=== PATIENT | male | born 1960 | race Caucasian/White ===

== ENCOUNTER 2016-10-16 14:22 | Inpatient (IN) | payer MEDICARE, MEDICAID ==
[~2016-10-16] VITALS: Ht 177.8 cm; Wt 86.2 kg
[~2016-10-16 14:22] MED LIST: ALPRAZOLAM0.25 MG; ATIVAN0.5 MG ORAL; CIPROFLOXACIN500 M2 ORAL; CLONAZEPAM1 M2 ORAL; CYMBALTA20 MG ORAL; FLONASE1 SPRAYS NASAL; HYDROCODON-ACE1 EA16 PO; ISENTRESS400 MG ORAL; KEFLEX500 MG ORAL; LISINOPRIL20 MG ORAL; MELOXICAM7.5 MG; METRONIDAZOLE500 MG ORAL; MORPHINE IR15 MG ORAL; NEXIUM40 MG ORAL; OMEPRAZOLE20 M2 ORAL; SEROSTIM6 M1; SIMVASTATIN40 MG ORAL; SINGLE USE SWA1 EACH; SULFAMETHOXAZO1 EAC2; TAMSULOSIN HCL0.4 MG ORAL; TESTIM5 GM; TRUVADA1 TAB ORAL; ZOFRAN4 MG ORAL; ZOLPIDEM TARTRAT5 MG ORAL
[2016-10-16] MEDS ORDERED: Morphine Sulfate 4mg/ml Inj IVP ONE (14:30)
--- NOTE | 2016-10-16 14:30 | Emergency Room Report ---
History of Present Illness General Chief Complaint: vomitting Source: Patient Present Illness HPI Patient is a 56-year-old male who presented after having increased abdominal pain as well as vomiting. Patient had prior history of HIV as well as chronic pain. Patient reportedly had not been able to keep down his medications and been vomiting in the waiting room of his doctor's office. The patient was sent in by Dr. Lamont Cordero. Patient had a generalized pain. Allergies: Coded Allergies: No Known Allergies (Verified , 05/18/11) Patient History Past Medical History: see triage record Reviewed Nursing Documentation: PMH: Agreed, PSxH: Agreed Nursing Documentation-PMH Hx Cardiac Problems: No - hiv Hx Hypertension: Yes Hx Pacemaker: No Hx Asthma: No Hx COPD: No Hx Diabetes: No Hx Cancer: No Hx Gastrointestinal Problems: Yes - Hiatal Hernia, GB removal surgery Hx Dialysis: No Hx Neurological Problems: No Hx Cerebrovascular Accident: No Hx Seizures: No Review of Systems All Other Systems: negative except mentioned in HPI Physical Exam Sp02 EP Interpretation: reviewed, normal General Appearance: normal inspection, alert, GCS 15, mild distress Head: atraumatic ENT: normal ENT inspection, hearing grossly normal, normal voice Neck: normal inspection, full range of motion, supple, no bony tend Respiratory: normal inspection, lungs clear, normal breath sounds, no respiratory distress, no retraction, no wheezing Cardiovascular #1: regular rate, rhythm, no edema Gastrointestinal: normal inspection, normal bowel sounds, soft, no guarding, no hernia, tenderness - mild diffuse, no guarding no rebound Genitourinary: no CVA tenderness Musculoskeletal: normal inspection, back normal, normal range of motion Neurologic: normal inspection, alert, oriented x3, responsive, satellite project site monitor III-XII nml as tested, speech normal Psychiatric: normal inspection, judgement/insight normal, mood/affect normal Skin: normal inspection, normal color, no rash Medical Decision Making Diagnostic Impression: Primary Impression: Intractable vomiting Additional Impression: Dehydration ER Course Patient presented for abdominal pain. Differential diagnoses included ischemic bowel, appendicitis, perforated viscus, abdominal aortic aneurysm, inferior myocardial infarction, viral gastroenteritis Because of complexity of patient's case laboratory testing and imaging studies were ordered.Patient was given IV fluids as well as IV antiemetics and pain medications.Dr. Lamont Cordero was contacted for inpatient observation due to multiple episodes of vomiting as well as recent increase pain. Labs Test 10/16/16 15:05 White Blood Count 5.6 K/UL (4.8-10.8) Red Blood Count 5.17 M/UL (4.70-6.10) Hemoglobin 17.1 G/DL (14.2-18.0) Hematocrit 51.0 % (42.0-52.0) Mean Corpuscular Volume 99 FL (80-99) Mean Corpuscular Hemoglobin 33.0 PG (27.0-31.0) Mean Corpuscular Hemoglobin Concent 33.5 G/DL (32.0-36.0) Red Cell Distribution Width 11.4 % (11.6-14.8) Platelet Count 200 K/UL (150-450) Mean Platelet Volume 7.4 FL (6.5-10.1) Neutrophils (%) (Auto) 70.0 % (45.0-75.0) Lymphocytes (%) (Auto) 18.4 % (20.0-45.0) Monocytes (%) (Auto) 9.5 % (1.0-10.0) Eosinophils (%) (Auto) 0.4 % (0.0-3.0) Basophils (%) (Auto) 1.6 % (0.0-2.0) Sodium Level 136 mEQ/L (135-145) Potassium Level 4.3 mEQ/L (3.4-4.9) Chloride Level 93 mEQ/L (98-107) Carbon Dioxide Level 31 mEQ/L (20-30) Anion Gap 12 (5-15) Blood Urea Nitrogen 15 mg/dL (7-23) Creatinine 1.0 mg/dL (0.7-1.2) Estimat Glomerular Filtration Rate > 60 mL/min (>60) Glucose Level 139 mg/dL (74-106) Calcium Level 9.3 mg/dL (8.6-10.2) Total Bilirubin 0.5 mg/dL (0.0-1.2) Aspartate Amino Transf (AST/SGOT) 27 U/L (5-40) Alanine Aminotransferase (ALT/SGPT) 20 U/L (3-41) Alkaline Phosphatase 48 U/L (40-129) Total Protein 6.7 g/dL (6.6-8.7) Albumin 4.3 g/dL (3.5-5.2) Globulin 2.4 g/dL Albumin/Globulin Ratio 1.7 (1.0-2.7) Lipase 22 U/L (< 60) Status: unchanged Disposition: PLACE IN OBSERVATION Condition: Serious Good Shell Oct 16, 2016 14:30
[2016-10-16] MEDS ORDERED: SOMA350 MG PO (14:47)
[2016-10-16] MEDS ORDERED: Tubing IV Cassette IV ONE (15:11)
[2016-10-16 15:28] LABS: BASOPHILS % (AUTO) 1.6 % (0.0-2.0); EOSINOPHILS % (AUTO) 0.4 % (0.0-3.0); LYMPHOCYTES % (AUTO) 18.4 % (20.0-45.0); MEAN CORPUSCULAR HGB CONC 33.5 G/DL (32.0-36.0); MEAN CORPUSCULAR VOLUME 99 FL (80-99); MEAN PLATELET VOLUME 7.4 FL (6.5-10.1); MONOCYTES % (AUTO) 9.5 % (1.0-10.0); PLATELET COUNT 200 K/UL (150-450); RED BLOOD COUNT 5.17 M/UL (4.70-6.10); RED CELL DISTRIBUTION WIDTH 11.4 % (11.6-14.8); WHITE BLOOD COUNT 5.6 K/UL (4.8-10.8)
[2016-10-16 15:37] LABS: ALANINE AMINOTRANSFERASE 20 U/L (3-41); ALBUMIN/GLOBULIN RATIO 1.7 (1.0-2.7); ANION GAP 12 (5-15); ASPARTATE AMINO TRANSFERASE 27 U/L (5-40); CALCIUM 9.3 mg/dL (8.6-10.2); CARBON DIOXIDE 31 mEQ/L (20-30); CHLORIDE 93 mEQ/L (98-107); GLOMERULAR FILTRATION RATE > 60 mL/min (>60); HEMOLYSIS 11; LIPASE 22 U/L (< 60); POTASSIUM 4.3 mEQ/L (3.4-4.9); SODIUM 136 mEQ/L (135-145); TOTAL PROTEIN 6.7 g/dL (6.6-8.7)
[2016-10-16 16:09] LABS: APPEARANCE,URINE CLEAR; KETONES,URINE 1+ (NEGATIVE); LEUKOCYTE ESTERASE ,URINE 1+ (NEGATIVE); NITRITE,URINE NEGATIVE (NEGATIVE); PH,URINE 6.5 (4.5-8.0); PROTEIN,URINE 1+ (NEGATIVE); UROBILINOGEN,URINE 4 MG/DL (0.0-1.0)
[2016-10-16 16:19] LABS: BACTERIA,URINE MODERATE /HPF; RBC,URINE 0-2 /HPF (0 - 0)
[2016-10-16 16:20] LABS: AMORPHOUS SEDIMENT,UR FEW /LPF; MUCUS,URINE FEW /LPF (NONE/OCC); YEAST,URINE FEW /HPF
[2016-10-16 16:30] VITALS: BP 163/95
[2016-10-16] MEDS ORDERED: Zolpidem 5mg tab ORAL PRN (16:45)
[2016-10-16] MEDS ORDERED: clonazePAM 0.5mg tab ORAL PRN (16:45)
[2016-10-16 20:00] VITALS: BP 156/93
[2016-10-16] MEDS: ALPRAZolam 0.25mg tab ORAL SCH (20:10)
[2016-10-16] MEDS ORDERED: Isentress 400mg tab ORAL SCH (21:00)
[2016-10-16] MEDS: HYDROmorphone 2 MG in NS 55 ML IVPB PRN (21:07)
[2016-10-16 23:31] VITALS: BP 146/81
[2016-10-17 03:45] VITALS: BP 151/88
[2016-10-17 08:07] VITALS: BP 127/83
[2016-10-17] MEDS: HYDROmorphone 2 MG in NS 55 ML IVPB PRN ×2 (08:35→12:59)
[2016-10-17] MEDS: ALPRAZolam 0.25mg tab ORAL SCH ×2 (08:36→12:59)
[2016-10-17] MEDS ORDERED: DULoxetine 30mg cap ORAL SCH (09:00)
[2016-10-17] MEDS ORDERED: Lisinopril 20mg tab ORAL SCH (09:00)
[2016-10-17] MEDS ORDERED: Emitricitabine/Tenofovir 200/300mg tab ORAL SCH (09:00)
[2016-10-17 12:14] VITALS: BP 106/72
--- NOTE | 2016-10-17 13:23 | Discharge Instructions ---
Discharge Instructions Discharge Instructions Diet: regular Resume Normal Activity?: Yes Pneumonia Vaccine: vaccine not indicated For Congestive Heart Failure Reminder Report to your physician any weight gain of 5 pounds or more in one week. MANAV BALDERAS Oct 17, 2016 13:23
[2016-10-17] MEDS ORDERED: Tubing IV Secondary IV ONE (14:06)
[2016-10-17] MEDS ORDERED: 1/2 NS 1000ml IV ONE (14:06)
--- NOTE | 2016-10-24 17:48 | Discharge Summary ---
Discharge Summary Hospital Course Date of Admission Oct 16, 2016 at 15:18 Date of Discharge Oct 17, 2016 at 14:07 Admitting Diagnosis GASTRO ENTRITIES ,DEHYDRATION HPI Biff Erum Olivares is a 56 year old male who was admitted on Oct 16, 2016 at 15: 18 for Gastroenretis,Dehydration Hospital Course [id number] Discharge Discharge Disposition Patient was discharged to Home (01) Discharge Diagnoses: Discharge Instructions Discharge Instructions Pneumonia Vaccine: vaccine not indicated Sue Lou NP Oct 24, 2016 17:48
--- NOTE | 2016-10-25 00:28 | Discharge Summary 2 SIG ---
DATE OF ADMISSION: 10/16/2016 DATE OF DISCHARGE: 10/17/2016 BRIEF HOSPITAL COURSE: The patient is a 56-year-old male, who presented to ED after increased abdominal pain, as well as vomiting. He has a history of HIV as well as chronic pain and reportedly he had not been able to keep down his medications and has been vomiting in the waiting's room at the doctor's office. He was sent to the ED and was admitted to the medical floor. He was given IV hydration. Following day, he was discharged home. FINAL DIAGNOSES: 1. Nausea and vomiting. 2. Abdominal pain. Lamont Cordero M.D. I have been assigned to dictate discharge summary on this account and I was not involved in the patient's management. Sue Lou N.P. DR: SALEEM JOB#: [id number] CC:
--- NOTE | 2016-10-28 20:58 | History and Physical Report ---
DATE OF ADMISSION: 10/16/2016 INPATIENT HISTORY AND PHYSICAL HISTORY OF PRESENT ILLNESS: The patient was admitted to the emergency room with a diagnosis of nausea and vomiting. The patient is HIV positive, has past history of diverticulitis, gastritis, abdominal pain, and constipation due to opioid use. Past history of intractable vomiting. He had a 48-hour history of nausea, vomiting, and diarrhea. His partner at home also had a similar history. He was seen in the Emergency Room at [facility] yesterday and discharged, however, returned to the office today complaining of ongoing symptoms and was admitted. PAST MEDICAL HISTORY: Remarkable for HIV disease and multiple admissions for nausea and vomiting due to opioid use. MEDICATIONS: Include Drake, Xanax, Soma, Klonopin, Cymbalta, Truvada, Nexium, fluticasone, lisinopril, morphine sulfate extended release, omeprazole, raltegravir 400 mg b.i.d., Zocor, Serostim, tamsulosin, Testim, Bactrim, and Ambien. PAST SURGICAL HISTORY: None. ALLERGIES: None. PHYSICAL EXAMINATION: GENERAL: A chronically ill-appearing man noted in his stated age. VITAL SIGNS: Within normal limits. HEENT: Head, ears eyes, nose, and throat are normal. NECK: Decreased range of motion. CHEST: Clear. HEART: S1, S2 normal without murmur or gallop. ABDOMEN: Soft without palpable organomegaly. EXTREMITIES: Negative for calf tenderness, clubbing, or edema. ASSESSMENT: Gastroenteritis. PLAN: He will receive IV hydration and will be on observation. Medications will be continued as tolerated. Lamont Cordero M.D. DR: Meka JOB#: [id number] CC:
== END 2016-10-17 14:07 | disposition home or self-care (01) | DRG 641 ==
LOC: EMR 14:57 → EDBEDREQ 15:13 → OBSVTOIN 15:18 → INTOOBSV 15:18 → 4W 15:18 → EDBEDREQ 15:52
DX: E86.0 Dehydration (principal); K52.9 Noninfective gastroenteritis and colitis, unspecified; K57.90 Diverticulosis of intestine, part unspecified, without perforation or abscess without bleeding; G89.29 Other chronic pain; K44.9 Diaphragmatic hernia without obstruction or gangrene; Z90.49 Acquired absence of other specified parts of digestive tract; Z86.2 Personal history of diseases of the blood and blood-forming organs and certain disorders involving the immune mechanism
CPT/HCPCS: 36415; 80053; 81003; 83690; 85025; 87086; J2405